=== PATIENT | male | born 1980 | race Caucasian/White ===

== ENCOUNTER 2021-02-28 21:01 | Emergency (ER) | payer SELFPAY ==
[2021-02-28] MEDS ORDERED: VIBRAMYCIN100 MG PO (22:11)
== END 2021-02-28 22:25 | disposition home or self-care (01) ==
LOC: FER 21:01
DX: L02.31 Cutaneous abscess of buttock (principal)
CPT/HCPCS: 87070; 87077; 87186; 87205